=== PATIENT | male | born 1965 | race Caucasian/White ===

== ENCOUNTER → 2017-02-05 11:17 | Outpatient (CLI) | payer MEDICARE | END | disposition home or self-care (01) | LOC: D.LABREF 11:17 | DX: L02.91 Cutaneous abscess, unspecified (principal) ==

== ENCOUNTER → 2017-02-10 15:12 | Outpatient (CLI) | payer MEDICARE | END | disposition home or self-care (01) | LOC: D.LABREF 15:12 | DX: L02.31 Cutaneous abscess of buttock (principal) ==

== ENCOUNTER → 2018-08-09 19:31 | Outpatient (CLI) | payer MEDICARE | END | disposition home or self-care (01) | LOC: D.SLEEP 08-02 20:00 | DX: G47.9 Sleep disorder, unspecified (principal); Z01.812 Encounter for preprocedural laboratory examination ==

== ENCOUNTER → 2019-07-17 07:52 | Outpatient (CLI) | payer MEDICARE | END | disposition home or self-care (01) | LOC: D.RAD 07:52 | PROVIDERS: ATTEND Pain Medicine Interventional Pain Medicine | DX: M25.561 Pain in right knee (principal) ==